=== PATIENT | male | born 1980 | race African-American/Black ===

== ENCOUNTER 2018-01-23 22:19 | Emergency (ER) | payer SELFPAY ==
[2018-01-23] MEDS ORDERED: IPRATROPIUM/ALBUTEROL 0.5-2.5 MG/3 ML AMPUL NEB ONE (23:12)
--- NOTE | 2018-01-23 23:37 | RADIOLOGY REPORT (SQ) ---
EXAM DESCRIPTION: XR CHEST 2 VIEWS COMPLETED DATE/TME: 01/23/2018 23:12 CLINICAL HISTORY: 37 years, Male, sob COMPARISON: Prior chest x-ray 12/07/2015 NUMBER OF VIEWS: 2 TECHNIQUE: Frontal and lateral views of the chest LIMITATIONS: None. FINDINGS: The heart size is normal. The lungs are clear. No pneumothorax IMPRESSION: Negative chest 2010 [facility] [employer]- All Rights Reserved
[2018-01-24] MEDS ORDERED: DEXAMETHASONE 4 MG TABLET PO ONE (00:26)
[2018-01-24] MEDS ORDERED: CETIRIZINE 10 MG TABLET PO ONE (00:26)
--- NOTE | 2018-01-24 00:37 | ER Document Report ---
ED General - General Chief Complaint: Shortness Of Breath Stated Complaint: BREATHING PROBLEM, COUGH, POSSIBLE MOLD EXPOSURE Time Seen by Provider: 01/23/18 23:12 Notes: Patient is a 37-year-old male without chronic medical problems who presents with coughing and shortness of breath after being exposed to black mold just prior to arrival. Patient states that he walked into a garage, began coughing immediately and has been irritated in terms of his breathing since that time. He has a history of environmental allergies but no history of asthma or emphysema. He does not smoke. Nothing has improved or worsened his symptoms onset. He describes his symptoms as mostly being a sensation of throat or lung irritation with associated frequent coughing. He denies chest pain, vomiting, syncope or hemoptysis. TRAVEL OUTSIDE OF THE [place] IN LAST 30 DAYS: No - Related Data Allergies/Adverse Reactions: No Known Allergies Allergy (Unverified 07/03/11 08:03) Past Medical History - General Information source: Patient - Social History Smoking Status: Never Smoker Chew tobacco use (# tins/day): No Frequency of alcohol use: None Drug Abuse: None Lives with: Spouse/Significant other Family History: Reviewed & Not Pertinent Patient has suicidal ideation: No Patient has homicidal ideation: No Neurological Medical History: Reports: Hx Migraine Renal/ Medical History: Denies: Hx Peritoneal Dialysis Past Surgical History: Reports: Hx Genitourinary Surgery - vasectomy - Immunizations Hx Diphtheria, Pertussis, Tetanus Vaccination: Yes Review of Systems - Review of Systems Notes: Constitutional: Negative for fever. HENT: Negative for sore throat. Eyes: Negative for visual changes. Cardiovascular: Negative for chest pain. Respiratory: Positive for cough and shortness of breath Gastrointestinal: Negative for abdominal pain, vomiting or diarrhea. Genitourinary: Negative for dysuria. Musculoskeletal: Negative for back pain. Skin: Negative for rash. Neurological: Negative for headaches, weakness or numbness. 10 point ROS negative except as marked above and in HPI. Physical Exam - Vital signs Vitals: Temp Pulse Resp BP Pulse Ox 98.5 F 95 22 H 134/80 H 95 01/23/18 22:29 01/23/18 22:29 01/23/18 22:29 01/23/18 22:29 01/23/18 22:29 Interpretation: Normal Notes: PHYSICAL EXAMINATION: GENERAL: Well-appearing, well-nourished and in no acute distress. HEAD: Atraumatic, normocephalic. EYES: Pupils equal round and reactive to light, extraocular movements intact, sclera anicteric, conjunctiva are normal. ENT: nares patent, oropharynx clear without exudates. Moist mucous membranes. NECK: Normal range of motion, supple without lymphadenopathy LUNGS: Breath sounds clear to auscultation bilaterally and equal. Faint inspiratory wheezing otherwise clear. HEART: Regular rate and rhythm without murmurs ABDOMEN: Soft, nontender, normoactive bowel sounds. No guarding, no rebound. No masses appreciated. EXTREMITIES: Normal range of motion, no pitting or edema. No cyanosis. NEUROLOGICAL: No focal neurological deficits. Moves all extremities spontaneously and on command. PSYCH: Normal mood, normal affect. SKIN: Warm, Dry, normal turgor, no rashes or lesions noted. Course - Re-evaluation Re-evalutation: 01/24/18 00:27 Patient presents with cough, intermittent sensation of shortness of breath and concern of exposure to mold. This appears to be reactive airway disease given the patient had some slight inspiratory wheezing and has had onset of symptoms in conjunction with exposure to unknown allergen. Patient is otherwise nontoxic in appearance, vitals within normal limits without tachypnea or hypoxia. Chest x-ray is clear. Very low clinical suspicion for an acute pneumonia, acute pulmonary embolus or any alternative life-threatening pathology. Patient has been given a dose of dexamethasone, started on an albuterol inhaler at home and encouraged to start cetirizine. At this time will discharge with return precautions and follow-up recommendations. Verbal discharge instructions given a the bedside and opportunity for questions given. Medication warnings reviewed. Patient is in agreement with this plan and has verbalized understanding of return precautions and the need for primary care follow-up in the next 24-72 hours. - Vital Signs Vital signs: Temp Pulse Resp BP Pulse Ox 97.6 F 89 16 127/75 H 96 01/24/18 00:49 01/24/18 00:49 01/24/18 00:49 01/24/18 00:49 01/24/18 00:49 - Diagnostic Test Radiology reviewed: Image reviewed, Reports reviewed Radiology results interpreted by me: 01/24/18 00:37 Chest x-ray: No acute infiltrate or pneumothorax Discharge - Discharge Clinical Impression: Environmental allergies, Mold exposure Reactive airway disease Qualifiers: Asthma severity: mild Asthma persistence: intermittent Asthma complication type : with acute exacerbation Qualified Code(s): J45.21 - Mild intermittent asthma with (acute) exacerbation Condition: Good Disposition: HOME, SELF-CARE Additional Instructions: You were seen for coughing and shortness of breath. Your chest xray is normal. Your symptoms appear to be related to reactive airway in the setting of mold exposure. It is very important that you return to the emergency department immediately if you began to have worsening difficulty breathing that does not respond to the albuterol inhaler with which you are going home. Please take over the counter cetirizine daily to reduce your response to environmental allergies. Please also follow closely with your primary care physician. you should also return to emergency department if you develop fever greater than 101 , persistent cough, persistent vomiting, pass out, or any other symptoms that are concerning to you. Referrals: MAURA MYERS MD [Primary Care Provider] - Follow up in 3-5 days
[2018-01-24] MEDS ORDERED: ALBUTEROL SULFATE HFA (90 MCG/PUFF) 200 PUFF/8.5 GM MDI IH ONE (00:38)
[2018-01-24 00:55] VITALS: BP 127/75
== END 2018-01-24 00:55 | disposition home or self-care (01) ==
LOC: ER 22:19
DX: Z77.120 Contact with and (suspected) exposure to mold (toxic) (principal); J45.21 Mild intermittent asthma with (acute) exacerbation; R06.02 Shortness of breath
CPT/HCPCS: 94640; 99285; 71046; J3490; J7620